=== PATIENT | female | born 1990 | race Caucasian/White ===

== ENCOUNTER 2016-04-04 18:40 | Emergency (ER) | payer OTHER, SELFPAY ==
[2016-04-04 19:09] VITALS: BP 126/77; PULSE 87; TEMP 97.8; BMI 18.6
[2016-04-04] MEDS ORDERED: DIPHTHERIA AND TETANUS (ADULT) 0.5 ML SYR IM ONE (19:15)
[2016-04-04] MEDS ORDERED: SILVER SULFADIAZINE 1% CREAM 20 GM TUBE TOP ONE (19:15)
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
== END 2016-04-04 19:40 | disposition home or self-care (01) ==
LOC: EDMC 18:40
DX: T22.211A Burn of second degree of right forearm, initial encounter (principal); V43.52XA Car driver injured in collision with other type car in traffic accident, initial encounter; Z23 Encounter for immunization; F17.200 Nicotine dependence, unspecified, uncomplicated
CPT/HCPCS: 90471; 90714; 99282; J3490